=== PATIENT | female | born 1995 | race Caucasian/White ===

== ENCOUNTER 2023-08-28 14:08 | Emergency (ER) | payer SELFPAY ==
[2023-08-28 15:12] LABS: Absolute Lymphocytes (CBC) 2.4 K/uL (0.7-4.9); Hematocrit 41.1 % (36.0-45.0); MCV 87.4 fL (80-100); MPV 7.7 fL (7.6-11.3); Platelets 362 thou/uL (152-406)
[2023-08-28 15:25] LABS: Potassium 3.8 mEq/L (3.5-5.1)
--- NOTE | 2023-08-28 15:58 | ER ---
Nurse's Notes [facility] Name: Flakita Benavidez Age: 28 yrs Sex: Female : 1995 Arrival Date: 08/28/2023 Time: 14:08 Bed 15 Private MD: Diagnosis: Facial weakness Presentation: 08/28 15:03 Chief complaint: Patient states: Left facial numbness that started at 11:15 am. States, me1 "my left eye feels heavy and the left side of my smile pulls back toward ear vs upward like it normally does." Reports decreased sensation on the left side of her face. Coronavirus screen: Vaccine status: Patient reports being unvaccinated. Ebola Screen: No symptoms or risks identified at this time. Initial Sepsis Screen: Does the patient meet any 2 criteria? No. Patient's initial sepsis screen is negative. Does the patient have a suspected source of infection? No. Patient's initial sepsis screen is negative. Risk Assessment: Do you want to hurt yourself or someone else? Patient reports no desire to harm self or others. Onset of symptoms was August 28, 2023 at 11:15. 15:03 Method Of Arrival: Ambulatory pa1 15:03 Acuity: MARIO 3 me1 15:07 Onset of symptoms was August 28, 2023 at 11:15. me1 Triage Assessment: 15:08 General: Appears comfortable, well groomed, well developed, well nourished, Behavior is me1 calm, cooperative, appropriate for age, Reports left sided numbness/weakness that started at 11:15am. Pain: Denies pain. Neuro: Level of Consciousness is awake, alert, obeys commands, Oriented to person, place, time, situation, Appropriate for age Facial symmetry appears normal, Pupils are PERRLA, Numbness in left face Babinski. 15:08 Cardiovascular: Capillary refill < 3 seconds Patient's skin is warm and dry. me1 Respiratory: Airway is patent Respiratory effort is even, unlabored, Respiratory pattern is regular, symmetrical. 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 - Social history:: Smoking status: Patient denies any tobacco usage or history of. - Hospitalizations: : No recent hospitalization is reported. Screenin:31 [facility] ED Fall Risk Assessment (Adult) History of falling in the last 3 months, me1 including since admission No falls in past 3 months (0 pts) Confusion or Disorientation No (0 pts) Intoxicated or Sedated No (0 pts) Impaired Gait No (0 pts) Mobility Assist Device Used No (0 pt) Altered Elimination No (0 pt) Score/Fall Risk Level 0 - 2 = Low Risk. Abuse screen: Denies threats or abuse. Nutritional screening: No deficits noted. Tuberculosis screening: No symptoms or risk factors identified. Assessment: 15:12 General: See triage assessment. . me1 15:40 General: Refused CT. Wants to go home and will f/u with PCP. Dr Gee informed. . me1 Vital Signs: 14:28 BP 115 / 75; Pulse 84; Resp 17; Temp 98.4; Pulse Ox 100% on R/A; jr12 14:45 BP 116 / 72; Pulse 85; Resp 17; Pulse Ox 100% on R/A; me1 15:22 BP 111 / 68; Pulse 90; Resp 16; Pulse Ox 100% on R/A; me1 ED Course: 14:12 Patient arrived in ED. ts1 14:16 Milton Gee MD is Attending Physician. rn 14:49 Ashleigh Mitchell, LAMAR is Primary Nurse. me1 14:58 Basic Metabolic Panel Sent. em1 14:58 CBC with Diff Sent. em1 14:58 Initial lab(s) drawn, by pa, sent to lab. Inserted saline lock: 20 gauge in right em1 wrist, using aseptic technique. Blood collected. 15:06 Triage completed. me1 15:08 Arm band placed on Patient placed in waiting room. me1 15:31 No provider procedures requiring assistance completed. me1 15:31 Patient has correct armband on for positive identification. Bed in low position. Call me1 light in reach. Side rails up X 1. Provided Education on: POC. Verbalized understanding. . 16:14 IV discontinued, intact, bleeding controlled, No redness/swelling at site. Pressure me1 dressing applied. Administered Medications: No medications were administered Medication: 16:14 VIS not applicable for this client. me1 Outcome: 15:57 Discharge ordered by . rn 16:14 Discharged to home ambulatory, me1 16:14 Condition: stable 16:14 Discharge instructions given to patient, Instructed on discharge instructions, follow up and referral plans. Demonstrated understanding of instructions, follow-up care, 16:14 Patient left the ED. me1 Signatures: Milton Gee MD MD rn Martinez, Eric 1 Jolie Ford PAS PAS 1 Ashleigh Mitchell RN RN pa1 Mally Mcginnis jr12
--- NOTE | 2023-08-28 15:58 | EDPHYS ---
Physician Documentation [facility] Name: Flakita Benavidez Age: 28 yrs Sex: Female : 1995 Arrival Date: 08/28/2023 Time: 14:08 Bed 15 Private MD: ED Physician Milton Gee HPI: 08/28 15:58 This 28 yrs old Female presents to ER via Ambulatory with complaints of Numbness Of rn Face, weakness of face. 16:06 The patient's problem is reported as paresthesias, in left side of face. rn 16:07 Onset: The symptoms/episode began/occurred this morning. The symptoms are alleviated by rn nothing. The symptoms are aggravated by nothing. Severity of symptoms: At their worst the symptoms were mild in the emergency department the symptoms have improved. The patient has not experienced similar symptoms in the past. Patient reports woke up this morning with pulling sensation to the face and noticed later that had weakness or left facial droop. No injury. Has never happened before. Does have recent viral illness. Exam complicated by the fact that she takes Botox shots to forehead.. 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 - Social history:: Smoking status: Patient denies any tobacco usage or history of. - Hospitalizations: : No recent hospitalization is reported. ROS: 16:07 Constitutional: Negative for fever, chills, and weight loss, Neck: Negative for injury, rn pain, and swelling, Cardiovascular: Negative for chest pain, palpitations, and edema, Respiratory: Negative for shortness of breath, cough, wheezing, and pleuritic chest pain, Abdomen/GI: Negative for abdominal pain, nausea, vomiting, diarrhea, and constipation, MS/Extremity: Negative for injury and deformity, Skin: Negative for injury, rash, and discoloration, Neuro: Negative for headache, and seizure, Exam: 16:07 Constitutional: This is a well developed, well nourished patient who is awake, alert, rn and in no acute distress. Neuro: Awake and alert, GCS 15, oriented to person, place, time, and situation. Decreased sensation over left cheek and lower face. Mild left upper and lower facial weakness, worse on the lower side of the face. Motor strength 5/5 in all extremities. Sensory grossly intact. Cerebellar exam normal. Normal gait. Vital Signs: 14:28 BP 115 / 75; Pulse 84; Resp 17; Temp 98.4; Pulse Ox 100% on R/A; jr12 14:45 BP 116 / 72; Pulse 85; Resp 17; Pulse Ox 100% on R/A; me1 15:22 BP 111 / 68; Pulse 90; Resp 16; Pulse Ox 100% on R/A; me1 MDM: 14:16 Patient medically screened. rn 16:07 Differential diagnosis: CVA, TIA, metabolic disorder, Jacobson's palsy. Data reviewed: rn vital signs, nurses notes. Refusal of service: The patient/guardian displays adequate decision making capability and despite a detailed discussion of alternatives, benefits, risks, and consequences refuses: CT Scan. ED course: Patient request to go home, refuses CAT scan, reports does not want further studies and gives the reason to be that her child is misbehaving and wants to go home. Understands risks of leaving without diagnosis and the chance of this being a stroke or brain tumor.. 08/28 14:25 Order name: CBC with Diff rn 08/28 14:25 Order name: Basic Metabolic Panel rn 08/28 14:25 Order name: IV Start; Complete Time: 14:58 rn Administered Medications: No medications were administered Disposition Summary: 08/28/23 15:57 Discharge Ordered Notes: Location: Home rn Problem: new rn Symptoms: are unchanged rn Condition: Stable rn Diagnosis - Facial weakness rn Followup: rn - With: Private Physician - When: As needed - Reason: Recheck today's complaints, Re-evaluation by your physician Forms: - Medication Reconciliation Form rn - Thank You Letter rn - Antibiotic travel rn - Prescription Opioid Use rn - Patient Portal Instructions rn - Leadership Thank You Letter rn Signatures: Dispatcher [employer] Milton Mchugh MD MD rn Eddleman, Michelle, RN RN nd1
[2023-08-28 16:25] VITALS: TEMP 98.4; O2SAT 100
[2023-08-28 16:28] VITALS: BP 111/68
== END 2023-08-28 16:14 | disposition home or self-care (01) ==
LOC: ER 14:08
DX: R29.810 Facial weakness (principal)
CPT/HCPCS: 36415; 80048; 85025; 99284